=== PATIENT | female | born 1975 | race Hispanic/Latino ===

== ENCOUNTER → 2024-03-28 | Outpatient (REF) | payer OTHER ==
[~2024-03-28] MED LIST: MAGNESIUM OXID400 MG PO; POTASSIUM CHLO10 ME1 PO; ZYRTEC10 M3 PO; [UNRECOGNIZED DRUG - OTHER] PO
== END ==
LOC: US 08:34
PROVIDERS: ATTEND Internal Medicine Gastroenterology
DX: K80.20 Calculus of gallbladder without cholecystitis without obstruction (principal); K76.0 Fatty (change of) liver, not elsewhere classified
CPT/HCPCS: 76700